=== PATIENT | female | born 1990 | race Hispanic/Latino ===

== ENCOUNTER 2017-10-24 09:56 | Observation (INO) | payer OTHER | END 2017-10-24 11:35 | disposition home or self-care (01) | LOC: EDH 09:56 → LDH 09:57 | PROVIDERS: ADMIT Obstetrics & Gynecology; ATTEND Obstetrics & Gynecology | DX: O26.893 Other specified pregnancy related conditions, third trimester (principal); M54.5 Low back pain; Z3A.34 34 weeks gestation of pregnancy | CPT/HCPCS: 99285; G0378 ×2 ==

== ENCOUNTER 2021-09-06 18:48 | Emergency (ER) | payer OTHER ==
[~2021-09-06] VITALS: Ht 157.5 cm; Wt 86.2 kg
[2021-09-06 18:53] VITALS: BP 107/67
[2021-09-06] MEDS ORDERED: OCTYL 2-CYANOACRYLATE 1 EACH TP ONE (19:21)
[2021-09-06] MEDS ORDERED: CEPHALEXIN 500 MG CAPSULE ONE (19:21)
[2021-09-06] MEDS ORDERED: TETANUS/DIPHTHERIA TOXOID [ADULT] 0.5 ML VIAL IM ONE ×2 (19:22→19:30)
[2021-09-06] MEDS ORDERED: CEPHALEXIN 500 MG CAPSULE PO ONE (19:30)
[2021-09-06] MEDS ORDERED: CEPH500B PO (19:38)
== END 2021-09-06 19:44 | disposition home or self-care (01) ==
LOC: EDH 18:48
DX: S61.211A Laceration without foreign body of left index finger without damage to nail, initial encounter (principal); F32.A Depression, unspecified; E66.9 Obesity, unspecified; Z68.34 Body mass index [BMI] 34.0-34.9, adult; X58.XXXA Exposure to other specified factors, initial encounter; Y93.89 Activity, other specified; Y92.89 Other specified places as the place of occurrence of the external cause; Y99.8 Other external cause status
CPT/HCPCS: 12001; 90471; 90714

== ENCOUNTER 2022-09-07 18:47 | Emergency (ER) | payer OTHER ==
[~2022-09-07] VITALS: Ht 160 cm; Wt 86.2 kg
[~2022-09-07 18:47] MED LIST: CEPH500B PO
[2022-09-07 21:31] VITALS: BP 118/72
== END 2022-09-07 21:27 | disposition home or self-care (01) ==
LOC: EDH 18:47
DX: M79.5 Residual foreign body in soft tissue (principal); F32.A Depression, unspecified; Z98.890 Other specified postprocedural states
CPT/HCPCS: 99281